=== PATIENT | male | born 1985 | race Two or more races ===

== ENCOUNTER 2019-03-03 10:09 | Emergency (ER) | payer OTHER ==
[~2019-03-03] VITALS: Ht 175.3 cm; Wt 95.0 kg
[2019-03-03 10:22] VITALS: BP 128/89
[2019-03-03] MEDS ORDERED: SODIUM CHLORIDE FLUSH 10ML SYR IVF ONE (11:00)
[2019-03-03 11:31] LABS: ALBUMIN 3.8 g/dL (3.4-5.0); ANION GAP 8 mmol/L (5-15); CALCIUM 8.8 mg/dL (8.5-10.1); CHLORIDE 106 mmol/L (98-107); CREATININE 0.96 mg/dL (0.7-1.3)
[2019-03-03 11:36] LABS: BASOPHILS # (AUTO) 0.05 x10^3/uL (0-0.1); BASOPHILS % (AUTO) 1 % (0-1); EOSINOPHILS # (AUTO) 0.07 x10^3/uL (0-0.4); EOSINOPHILS % (AUTO) 1 % (1-7); LYMPHOCYTES # (AUTO) 2.07 x10^3/uL (1-3.4); LYMPHOCYTES % (AUTO) 19 % (22-44); MD NO; MEAN CORPUSCULAR HEMOGLOBIN 31.4 pg (27.5-34.5); MEAN CORPUSCULAR HGB CONC 34.3 g/dL (33.2-36.2); MEAN CORPUSCULAR VOLUME 91.7 fL (81-97); MEAN PLATELET VOLUME 7.9 fL (7.4-10.4); MONOCYTES # (AUTO) 0.81 x10^3/uL (0.2-0.8); MONOCYTES % (AUTO) 8 % (2-9); NEUTROPHILS # (AUTO) 7.84 x10^3/uL (1.8-6.8); NEUTROPHILS % (AUTO) 72 % (42-75); PLATELET COUNT 222 x10^3/uL (130-400); RED BLOOD COUNT 5.93 x10^6/uL (4.38-5.82); RED CELL DISTRIBUTION WIDTH 12.5 % (9.4-14.8)
[2019-03-03] MEDS ORDERED: OMNIPAQUE 350 MG/ML, 75ML BOTTLE ONE (11:52)
--- NOTE | 2019-03-03 12:10 | NUR ---
RECEIVED REPORT FROM DORIS MANCIA. CARE ASSUMED OF PT IN RME. A&OX4. RESTING COMFORTABLY, DENIES NEED TO USE RESTROOM. ALL NEEDS MET AND ADDRESSED, AWAITING CT RESTULTS AND RECHECK. CALL LIGHT IN REACH. FALL PRECAUTIONS IN PLACE. FAMILY AT BEDSIDE.
--- NOTE | 2019-03-03 12:40 | NUR ---
ANAI HAMILTON AT BEDSIDE FOR RECHECK, DISCUSSING DISCHARGE POC AND INSTRUCTIONS.
== END 2019-03-03 13:01 | disposition home or self-care (01) ==
LOC: ED 12:55
DX: K04.7 Periapical abscess without sinus (principal); K08.89 Other specified disorders of teeth and supporting structures; F17.200 Nicotine dependence, unspecified, uncomplicated
CPT/HCPCS: 36415; 70487; 80048; 82040; 85025; 99284; Q9967